=== PATIENT | female | born 1965 | race American Indian/Alaskan Native ===

== ENCOUNTER 2019-03-22 08:58 | Emergency (ER) | payer OTHER ==
[2019-03-22 08:58] VITALS: BMI 57.6
[2019-03-22 09:45] VITALS: RESP 18; O2SAT 100
[2019-03-22 10:24] LABS: BASO % 0.8 % (0.0-2.0); EOS # 0.1 K/uL (0.0-0.7); EOS % 1.4 % (0.0-4.0); HEMOGLOBIN 12.6 g/dL (11.0-16.0); LYMPH # 1.5 K/uL (1.0-4.3); LYMPH % 33.5 % (20.0-40.0); MEAN CORPUSCULAR HEMOGLOBIN 30.2 pg (27.0-31.0); MEAN CORPUSCULAR HGB CONC 33.9 g/dL (33.0-37.0); MEAN PLATELET VOLUME 8.7 fL (7.2-11.7); MONO # 0.4 K/uL (0.0-0.8); MONO % 8.7 % (0.0-10.0); NEUT # 2.4 K/uL (1.8-7.0); NEUT % 55.6 % (50.0-75.0); NRBC % 0.1 % (0.0-2.0); RBC 4.18 Mil/uL (3.80-5.20); RED CELL DISTRIBUTION WIDTH 13.3 % (11.5-14.5)
[2019-03-22 10:26] LABS: MEAN CELL VOLUME 89.1 fL (81.0-99.0); WHITE BLOOD COUNT 4.4 K/uL (4.8-10.8)
--- NOTE | 2019-03-22 10:28 | C.PDOC ---
History Of Present Illness 53 year old female presents to ED with complaint of dizziness for the past 2-3 days. Patient states that she has been having a "weird sensation." She states that she recently started a detox cleanse 5 days ago. Patient states that she has not been eating like she normally does. Patient states that her dizziness has resolved, but was told by her PMD to come and get evaluated. She denies nausea, vomiting, or headache. Time Seen by Provider: 03/22/19 09:19 Chief Complaint (Nursing): Dizziness/Lightheaded History Per: Patient History/Exam Limitations: no limitations Onset/Duration Of Symptoms: Days (2-3) Current Symptoms Are (Timing): Still Present Fall Associated With With Symptoms: No Past Medical History Reviewed: Historical Data, Nursing Documentation, Vital Signs Vital Signs: Last Vital Signs Temp 98.6 F 03/22/19 09:03 Pulse 72 03/22/19 09:03 Resp 18 03/22/19 09:03 BP 149/76 03/22/19 09:17 Pulse Ox 100 03/22/19 09:03 Primary Care Provider: Toño Victoria - Medical History PMH: Sleep Apnea (c pap ) Denies: Depression, Chronic Kidney Disease Surgical History: Cholecystectomy, Tonsillectomy Other Surgeries: GAstric sleeve surgery - [facility] Procedures EXCISION OF STOMACH, PERCUTANEOUS ENDOSCOPIC APPROACH, VERT (08/15/16) INSPECTION OF UPPER INTESTINAL TRACT, ENDO (08/15/16) Family History: States: Unknown Family Hx - Social History Hx Tobacco Use: No Hx Alcohol Use: No Hx Substance Use: No - Immunization History Hx Tetanus Toxoid Vaccination: No Hx Influenza Vaccination: No Hx Pneumococcal Vaccination: No Review Of Systems Constitutional: Negative for: Fever, Chills, Weakness Eyes: Negative for: Vision Change ENT: Negative for: Ear Pain, Ear Discharge, Nose Pain, Nose Discharge Cardiovascular: Negative for: Chest Pain Respiratory: Negative for: Shortness of Breath Gastrointestinal: Negative for: Nausea, Vomiting Genitourinary: Negative for: Dysuria Musculoskeletal: Negative for: Neck Pain Neurological: Positive for: Dizziness. Negative for: Weakness, Numbness, Headache Physical Exam - Physical Exam Appears: Well, Non-toxic, No Acute Distress Skin: Normal Color, Warm, Dry, No Rash Head: Atraumatic, Normacephalic Eye(s): bilateral: Normal Inspection, PERRL, EOMI Ear(s): Bilateral: Normal Oral Mucosa: Moist Tongue: Normal Appearing, No Swelling Lips: Normal Appearing, No Swelling Throat: Normal, No Erythema, No Exudate Neck: Normal ROM, Supple Chest: Symmetrical, No Deformity Cardiovascular: Rhythm Regular, No Friction Rub, No Murmur Respiratory: No Accessory Muscle Use, No Rales, No Rhonchi, No Wheezing Gastrointestinal/Abdominal: Soft, No Tenderness Back: Normal Inspection, No CVA Tenderness Extremity: No Tenderness, Capillary Refill (<2 seconds), No Swelling Pulses: Left Radial: Normal, Right Radial: Normal Neurological/Psych: Oriented x3, Normal Speech, Normal Cognition, Normal Motor Gait: Steady ED Course And Treatment - Laboratory Results Result Diagrams: 03/22/19 10:15 03/22/19 10:15 ECG: Interpreted By Me, Viewed By Nv ECG Rhythm: Sinus Rhythm ECG Interpretation: Normal Interpretation Of ECG: Normal ST/T waves. Normal R-wave progression. Rate From EC O2 Sat by Pulse Oximetry: 100 (in RA) Pulse Ox Interpretation: Normal - Radiology CXR: Interpreted by Me CXR Interpretation: Yes: No Acute Disease Nexus Criteria: Negative Medical Decision Making Medical Decision Making: Initial Plan: EKG CXR CMP troponin CBC glucose POC Labs are WNL's. PT was informed about BP results and states she will follow up On re-exam, the patient has no complaints and feels well. Lungs are CTA, heart is RRR, abdomen is soft, non-tender and tolerating PO well. Pt is ambulatory in the ED with steady gait. The case was discussed with Dr. Victoria who agrees the patient is able to discharged home Disposition - Disposition Referrals: Toño Victoria MD [Staff Provider] - Disposition: HOME/ ROUTINE Disposition Time: 11:15 Condition: GOOD Additional Instructions: Follow up with Dr. Victoria within 1-2 days without fail. Return if worsened. Prescriptions: Meclizine HCl 25 mg PO TID PRN #25 tablet PRN Reason: Dizziness Instructions: Dizziness, Nonvertigo, (DC) Forms: [employer] (Ugandan) - Clinical Impression Clinical Impression: Dizziness, Hypertension - PA / TEST ENGINE MECHANIC / Resident Statement MD/DO has reviewed & agrees with the documentation as recorded. (Magdalena Barragan) - Scribe Statement The provider has reviewed the documentation as recorded by the Scribe (Magdalena Barragan) All medical record entries made by the Scribe were at my direction and personally dictated by me. I have reviewed the chart and agree that the record accurately reflects my personal performance of the history, physical exam, medical decision making, and the department course for this patient. I have also personally directed, reviewed, and agree with the discharge instructions and disposition.
[2019-03-22 10:33] LABS: ALB/GLOB RATIO 1.1 (1.0-2.1); ALBUMIN 3.8 g/dL (3.5-5.0); ALT/SGPT 21 U/L (9-52); AST/SGOT 21 U/L (14-36); BLOOD UREA NITROGEN 11 mg/dL (7-17); GFR NON-AFRICAN AMERICAN > 60
[2019-03-22 10:34] LABS: HCG,QUALITATIVE URINE NEGATIVE (NEGATIVE)
[2019-03-22] MEDS ORDERED: Albuterol-Ipratrop 3 mg / 0.5 (3 ml) UD ONE (10:35)
[2019-03-22 10:38] LABS: SQUAMOUS EPITHIAL 4 /hpf (0-5); URINE BACTERIA MOD (<OCC); URINE BILIRUBIN NEGATIVE (NEGATIVE); URINE BLOOD NEGATIVE (NEGATIVE); URINE CLARITY Clear (Clear); URINE COLOR Yellow (YELLOW); URINE GLUCOSE (UA) NORMAL (Normal); URINE LEUKOCYTE ESTERASE NEG Leu/uL (Negative); URINE PROTEIN NEGATIVE (NEGATIVE)
--- NOTE | 2019-03-22 10:38 | RAD ---
Date of service: 03/22/2019 PROCEDURE: CHEST RADIOGRAPH, 1 VIEW HISTORY: dizziness COMPARISON: 06/22/2016 FINDINGS: LUNGS: Clear. PLEURA: No pneumothorax or pleural fluid seen. CARDIOVASCULAR: No aortic atherosclerotic calcification present. Normal. OSSEOUS STRUCTURES: No significant abnormalities. VISUALIZED UPPER ABDOMEN: Normal. OTHER FINDINGS: None. IMPRESSION: No active disease.
[2019-03-22 11:17] VITALS: BP 153/74; PULSE 66; TEMP 97.9
--- NOTE | 2019-03-24 13:38 | CARD ---
APPROVED REPORT Date of service: 03/22/2019 EKG Measurement Heart [id number] <Conclusion> Normal sinus rhythm Normal ECG
== END 2019-03-22 11:31 | disposition home or self-care (01) ==
LOC: C.ER 08:58
DX: R42 Dizziness and giddiness (principal); I10 Essential (primary) hypertension